=== PATIENT | female | born 1995 | race Asian ===

== ENCOUNTER 2016-03-17 14:30 | Emergency (ER) | payer OTHER ==
[~2016-03-17] VITALS: Ht 154.9 cm; Wt 52.2 kg
[~2016-03-17 14:30] MED LIST: AMOXICILLIN250 M2 PO; PROM25TA52 PO
[2016-03-17 16:55] LABS: PLATELET COUNT 264 K/uL (152-353)
[2016-03-17 17:13] LABS: POTASSIUM 3.3 mmol/L (3.6-5.2); SODIUM 130 mmol/L (136-145)
[2016-03-17 20:07] VITALS: BP 128/75; TEMP 98.4
== END 2016-03-17 20:10 | disposition home or self-care (01) ==
LOC: ED 14:30
PROVIDERS: Specialist
DX: O23.41 Unspecified infection of urinary tract in pregnancy, first trimester (principal)
CPT/HCPCS: 36415; 80048; 81000; 85027; 87086; 87088; 96361; 96365; 96375; 99284; J0696; J2550

== ENCOUNTER 2016-09-16 14:16 | Emergency (ER) | payer OTHER | END 2016-09-16 14:40 | disposition left against medical advice (07) | LOC: ED 14:16 | DX: Z04.8 Encounter for examination and observation for other specified reasons (principal) | CPT/HCPCS: 99281 ==

== ENCOUNTER 2017-01-01 09:09 | Emergency (ER) | payer OTHER ==
[~2017-01-01] VITALS: Ht 154.9 cm; Wt 57.6 kg
[2017-01-01 09:17] VITALS: TEMP 98.5
[2017-01-01 09:52] LABS: PLATELET COUNT 316 K/uL (152-353)
[2017-01-01 10:01] LABS: POTASSIUM 3.5 mmol/L (3.6-5.2); SODIUM 135 mmol/L (136-145)
[2017-01-01 10:41] VITALS: BP 138/69
== END 2017-01-01 10:44 | disposition home or self-care (01) ==
LOC: ED 09:09
DX: R11.2 Nausea with vomiting, unspecified (principal); E86.9 Volume depletion, unspecified; E86.0 Dehydration; K52.89 Other specified noninfective gastroenteritis and colitis
CPT/HCPCS: 80048; 82150; 83690; 85027; 96360; 96375; 99284; J2405

== ENCOUNTER 2017-01-02 09:07 | Observation (INO) | payer OTHER ==
[~2017-01-02] VITALS: Ht 154.9 cm; Wt 58.6 kg
[2017-01-02 09:15] VITALS: BP 123/89; TEMP 98.4
[2017-01-02 09:45] LABS: PLATELET COUNT 296 K/uL (152-353)
[2017-01-02 09:52] LABS: POTASSIUM 2.6 mmol/L (3.6-5.2); SODIUM 133 mmol/L (136-145)
[2017-01-02 10:45] VITALS: BP 112/80
[2017-01-02 11:18] VITALS: BP 150/90; TEMP 98.6
[2017-01-02 12:49] VITALS: BP 122/88; TEMP 98.8; Ht 154.9 cm; Wt 58.6 kg
[2017-01-02 16:00] VITALS: BP 122/67; TEMP 98.3
[2017-01-02 20:00] VITALS: BP 133/85; TEMP 99.5
[2017-01-03] VITALS: BP 105/67; TEMP 98.7
[2017-01-03 04:00] VITALS: BP 120/72; TEMP 99.2
[2017-01-03 06:05] LABS: SODIUM 135 mmol/L (136-145)
[2017-01-03 06:11] LABS: PLATELET COUNT 238 K/uL (152-353)
[2017-01-03 08:00] VITALS: BP 104/65; TEMP 99.6
[2017-01-03 12:00] VITALS: BP 109/76; TEMP 99
== END 2017-01-03 16:20 | disposition home or self-care (01) ==
LOC: ED 09:07 → MED/SURG 10:25
DX: K52.89 Other specified noninfective gastroenteritis and colitis (principal); R11.2 Nausea with vomiting, unspecified; A08.8 Other specified intestinal infections; E86.0 Dehydration; E87.6 Hypokalemia; E86.9 Volume depletion, unspecified
CPT/HCPCS: 36415; 80048; 80053; 81000; 82150; 83690; 83735; 85027; 96360; 96361; 96365; 96366; 96375; 96376; 99220; 99284; G0378; J2060; J2405; J3490

== ENCOUNTER 2020-07-29 02:16 | Emergency (ER) | payer OTHER ==
[~2020-07-29] VITALS: Ht 154.9 cm; Wt 69.9 kg
[2020-07-29 03:26] VITALS: BP 122/70; TEMP 98.3
== END 2020-07-29 03:26 | disposition home or self-care (01) ==
LOC: ED 02:16
DX: F41.8 Other specified anxiety disorders (principal); F41.0 Panic disorder [episodic paroxysmal anxiety]
CPT/HCPCS: 99283

== ENCOUNTER 2021-03-19 01:44 | Emergency (ER) | payer OTHER ==
[~2021-03-19] VITALS: Ht 154.9 cm; Wt 73.5 kg
[2021-03-19 02:43] LABS: PLATELET COUNT 331 K/uL (152-353)
[2021-03-19 02:52] LABS: POTASSIUM 3.4 mmol/L (3.6-5.2)
[2021-03-19 03:03] LABS: PARTIAL THROMBOPLASTIN TIME 26.8 SECONDS (24.5-33.6)
[2021-03-19 03:25] VITALS: BP 117/80; TEMP 97.8
== END 2021-03-19 03:30 | disposition home or self-care (01) ==
LOC: ED 01:44
PROVIDERS: Hospitalist
DX: R07.89 Other chest pain (principal); F41.8 Other specified anxiety disorders; R00.2 Palpitations; U07.1 COVID-19
CPT/HCPCS: 36415; 80053; 82550; 83880; 84484; 85027; 85379; 85610; 85730; 87635; 93005; 99284; U0003

== ENCOUNTER 2022-12-13 09:04 | Outpatient (CLI) | payer OTHER | END 2022-12-13 19:09 | disposition home or self-care (01) | LOC: CT 09:04 | PROVIDERS: ATTEND Specialist | DX: R19.00 Intra-abdominal and pelvic swelling, mass and lump, unspecified site (principal); M79.89 Other specified soft tissue disorders; Z98.890 Other specified postprocedural states | CPT/HCPCS: Q9963 ==